=== PATIENT | male | born 1990 | race African-American/Black ===

== ENCOUNTER 2024-06-19 10:49 | Emergency (ER) | payer MEDICAID ==
[~2024-06-19] VITALS: Ht 177.8 cm; Wt 82.0 kg
[2024-06-19 10:54] VITALS: O2SAT 99
[2024-06-19 11:09] VITALS: BP 111/65; PULSE 98; RESP 18; TEMP 98.4; O2SAT 100
[2024-06-19] MEDS ORDERED: LIDOCAINE HCL/PF 1% 10 MG/ML 5ML VIAL INFIL ONE (12:00)
[2024-06-19] MEDS ORDERED: BACITRACIN ZINC OINT UDPKT TOP ONE (12:00)
[2024-06-19] MEDS: BACITRACIN ZINC OINT UDPKT TOP NR (14:03)
== END 2024-06-19 14:04 | disposition home or self-care (01) ==
LOC: ER 11:00
DX: S61.213A Laceration without foreign body of left middle finger without damage to nail, initial encounter (principal); W26.0XXA Contact with knife, initial encounter; Y93.89 Activity, other specified; Y92.89 Other specified places as the place of occurrence of the external cause; Y99.8 Other external cause status
CPT/HCPCS: 99282; 12001; J3490